=== PATIENT | male | born 1980 | race Caucasian/White ===

== ENCOUNTER → 2016-04-26 | Outpatient (CLI) | payer OTHER ==
--- NOTE | 2016-04-26 13:05 | REP ---
MAXILLOFACIAL CT WITHOUT CONTRAST: HISTORY: Chronic sinusitis. Mild mucosal thickening is present in the ethmoid sinuses. Mucosal thickening is present in the left frontal sinus. The is almost complete opacification of the left frontal sinus. Minimal mucosal thickening is present in the maxillary sinuses. Retention cysts or polyps are present in the maxillary sinuses. Minimal mucosal thickening is present in the sphenoid sinuses. The right frontal sinus is clear. Mucosal thickening involves the osteomeatal units. The middle and inferior nasal turbinates are partially paradoxical. The nasal septum is midline. The cribriform plate, medial montilla of the orbits, and optic canals are intact. The carotid canals form a segment of the posterolateral montilla of the sphenoid sinus. The sphenoid sinus septum inserts into the left internal carotid canal wall. IMPRESSION: 1. Sinus mucosal thickening as described above. 2. Bilateral maxillary sinus retention cysts or polyps. Signed by Javier Mckenzie MD 04/26/2016 01:09 P
== END | disposition home or self-care (01) ==
LOC: M RAD 11:53
PROVIDERS: ATTEND Otolaryngology
DX: J32.4 Chronic pansinusitis (principal); J34.1 Cyst and mucocele of nose and nasal sinus

== ENCOUNTER → 2016-08-22 | Outpatient (CLI) | payer OTHER ==
[~2016-08-22] MED LIST: METHACHOLINE KIT (J7674) INH ONE
--- NOTE | 2016-08-22 08:49 | PFTRPT ---
Tech: Jelena SIMMONS RRT Age: 36 Sex: Male Race: Height: 66.00 Inches Weight: 174.00 Lbs BSA: 1.89 Diagnosis: R05 METHACHOLINE CHALLENGE REPORT: ORDERING PROVIDER: Hardeep Cole M.D. DATE OF SERVICE: 08/22/16 INTERPRETATION: The study was of excellent technical quality. Under protocol, methacholine was administered. At a dose of 2.5 mg (13.875 CDUs), a 23% decline in the FEV1 was noted. The PC20 of 1.46 is significant. Flow rates returned to better than baseline post bronchodilator administration. IMPRESSION: Positive methacholine challenge study. MTDD
== END ==
LOC: M CARPUL 07:44
PROVIDERS: ATTEND Internal Medicine Pulmonary Disease
DX: R05 Cough (principal)

== ENCOUNTER 2016-10-23 09:56 | Day surgery (SDC) | payer OTHER ==
[2016-10-23] VITALS (7 sets, daily range): BP systolic 115–134; BP diastolic 61–91
[~2016-10-23] VITALS: Ht 167.6 cm; Wt 81.6 kg
[~2016-10-23 09:56] MED LIST changes: +ADVA230A INH; +COEN100C PO; +DEPA250T32 PO; +DICY1CAP8 PO; +FISH1000 PO; +MAXA10TA14 PO; +MELA3CAP2 PO; -METHACHOLINE KIT (J7674) INH ONE; +NAPR500T3 PO; +PROAAER10 INH; +RIBO50CA PO; +VITATAB11 PO
[2016-10-23] MEDS ORDERED: LR 1,000 ML IV ONE (10:00)
[2016-10-23] MEDS ORDERED: PROPOFOL 200 MG/20 ML VIAL As Ordered ONE (11:59)
[2016-10-23] MEDS ORDERED: MIDAZOLAM INJ 2 MG/2 ML VIAL (J2250) As Ordered ONE (11:59)
[2016-10-23] MEDS ORDERED: fentaNYL 100 MCG/2 ML INJECTION (J3010) As Ordered ONE (11:59)
[2016-10-23] MEDS ORDERED: LIDOCAINE 2% INJ 100 MG/5 ML SDV (FOR ANES.) As Ordered ONE (11:59)
[2016-10-23] MEDS ORDERED: ROCURONIUM BROMIDE 50 MG/5 ML VIAL/SYRINGE As Ordered ONE (11:59)
[2016-10-23] MEDS ORDERED: dexameTHASONE 4 MG/ML 1ML VIAL (J1100) As Ordered ONE (12:00)
[2016-10-23] MEDS ORDERED: ONDANSETRON 4MG/2ML VIAL (J2405) As Ordered ONE ×2 (12:00→16:35)
[2016-10-23] MEDS ORDERED: EPINEPHrine 1MG/ML INJ 30ML MD-VIAL As Ordered ONE (13:11)
[2016-10-23] MEDS ORDERED: LIDOCAINE W/EPINEPHRINE 1% 20ML VIAL As Ordered ONE (13:11)
[2016-10-23] MEDS ORDERED: HYDROmorphone HCL 2 MG/ML 1ML VIAL (J1170) As Ordered ONE (13:48)
[2016-10-23] MEDS ORDERED: MORPHINE 10 MG/ML 1ML VIAL IV PRN (15:00)
[2016-10-23] MEDS ORDERED: LR 1,000 ML IV SCH ×2 (15:00→15:30)
[2016-10-23] MEDS ORDERED: PERCOCET 5MG/325MG TAB PO PRN (15:30)
[2016-10-23] MEDS ORDERED: ONDANSETRON 4MG/2ML VIAL (J2405) IV PRN (15:30)
[2016-10-23] MEDS ORDERED: fentaNYL 100 MCG/2 ML INJECTION (J3010) IV PRN (15:30)
[2016-10-23] MEDS ORDERED: HYDROmorphone HCL 1 MG/ML SYRINGE (J1170) IV PRN (15:30)
[2016-10-23] MEDS ORDERED: METOCLOPRAMIDE INJ 10MG/2ML VIAL (J2765) IV PRN (15:30)
[2016-10-23] MEDS: ACETAMINOPH W/CODEINE #3 TAB UD PO PRN ×2 (15:34→21:06)
[2016-10-23] MEDS ORDERED: ALBUTEROL SULFATE 2.5 MG/0.5 ML INH NEB SOLN As Ordered ONE (15:41)
[2016-10-23] MEDS ORDERED: ALBUTEROL SULFATE 2.5 MG/0.5 ML INH NEB SOLN INH ONE (16:00)
[2016-10-23] MEDS ORDERED: METOCLOPRAMIDE INJ 10MG/2ML VIAL (J2765) As Ordered ONE (16:35)
[2016-10-23] MEDS ORDERED: RIZATRIPTAN BENZOATE 10 MG TAB PO PRN (17:30)
[2016-10-24 04:00] VITALS: BP 115/65
[2016-10-24] MEDS: ACETAMINOPH W/CODEINE #3 TAB UD PO PRN (04:19)
[2016-10-24 08:00] VITALS: BP 127/78
--- NOTE | 2016-10-25 15:58 | RO ---
DATE OF PROCEDURE: 10/23/2016 PREOPERATIVE DIAGNOSIS: Chronic rhinosinusitis. POSTOPERATIVE DIAGNOSIS: Chronic rhinosinusitis. PROCEDURE: Bilateral antrostomy, ethmoidectomy, left balloon maxillary sinus dilation. SURGEON: Dr. Andrei Hughes METAL EXPEDITER: ANESTHESIA: FINDINGS: There was very thick bone on the right side of the anterior aspect of the ethmoid area and also the medial wall of the maxillary sinus. I did attempt balloon dilatation of the right side, but I could not identify the natural sinus ostium. DESCRIPTION OF PROCEDURE: Under general anesthesia with the patient intubated, the patient prepped and draped in the usual manner, I infiltrated with lidocaine with epinephrine. I used pledges of adrenaline 1:1000 I started first on the right side. Identified the uncinate process. Then I mobilized it anteriorly. There was some polypoid tissue right in this area, so I removed that with a microdebrider. Again, I attempted to find the natural sinus ostium and was unsuccessful. So, what I did was I ended up going through the anterior aspect of the ethmoid air cells into the ethmoid area and opened that up. I then tried to enter into the maxillary sinus, but the wall was very thick. I did find an area that I went into and I did not feel comfortable about it, so I decided just to leave it at that. On the left side, a similar procedure was performed. I did identify the natural sinus ostium and advanced the balloon after putting in the guidewire into the natural sinus ostium of the left side and dilated it up. I was able to see within the sinus. Again, there was some polypoid tissue in this area and I removed that with a microdebrider. I opened up the ethmoid air cells on that left side. Because of the above findings. I thought it would best to leave it as it was and then, if necessary, come back with the navigation guidance to assist in procedure. I thought it may be necessary to drill up part of that area rather than do it with the microdebrider. The patient tolerated the procedure well. Less than 100 mL of estimated blood loss. There was no bleeding at the end of the procedure. I did put Propel implants in the area between the turbinate and lateral nasal wall on both sides. Patient was extubated and transferred to the recovery room in excellent condition.
[2016-12-10] MEDS ORDERED: REFR0.5D8 OU (11:39)
== END 2016-10-24 09:10 | disposition home or self-care (01) ==
LOC: M SDC 09:56 → M PED 17:55 → M SDC 10-24 09:10
PROVIDERS: ATTEND Otolaryngology
DX: J32.8 Other chronic sinusitis (principal); G43.909 Migraine, unspecified, not intractable, without status migrainosus; F17.210 Nicotine dependence, cigarettes, uncomplicated; K58.9 Irritable bowel syndrome, unspecified; M50.20 Other cervical disc displacement, unspecified cervical region; D49.6 Neoplasm of unspecified behavior of brain; J45.909 Unspecified asthma, uncomplicated; R06.83 Snoring; T88.4XXD Failed or difficult intubation, subsequent encounter; Z88.8 Allergy status to other drugs, medicaments and biological substances; Z79.899 Other long term (current) drug therapy
CPT/HCPCS: 31255; 31256; 96374; 96375; C2625; J1170; J2250; J2405; J2765; J3010

== ENCOUNTER → 2016-11-08 | Outpatient (REF) | payer OTHER ==
[~2016-11-08] MED LIST changes: +REFR0.5D8 OU
[2016-11-11 14:08] LABS: D001-IgE D pteronyssinus 0.99 kU/L (Class II); E001-IgE Cat Epith/Dander < 0.10 kU/L (Class 0); E005-IgE Dog Dander < 0.10 kU/L (Class 0); G002-IgE Bermuda Grass < 0.10 kU/L (Class 0); G008-IgE Kentucky Bluegrass < 0.10 kU/L (Class 0); M001-IgE Penicillium chrysogen < 0.10 kU/L (Class 0); M002 IgE Cladosporium herbaru < 0.10 kU/L (Class 0); M003 IgE Aspergillus fumigatu < 0.10 kU/L (Class 0); M006-IgE Alternaria alternata < 0.10 kU/L (Class 0); T001-IgE Maple/Box Elder < 0.10 kU/L (Class 0); T003-IgE Common Silver Birch < 0.10 kU/L (Class 0); T007-IgE Oak, White < 0.10 kU/L (Class 0); T008-IgE Elm, American < 0.10 kU/L (Class 0); T015-IgE Ash, White < 0.10 kU/L (Class 0); T041-IgE Hickory, White < 0.10 kU/L (Class 0); W001-IgE Ragweed, Short < 0.10 kU/L (Class 0); W014-IgE Pigweed, Rough < 0.10 kU/L (Class 0); W018-IgE Sheep Sorrel < 0.10 kU/L (Class 0)
== END ==
LOC: M LAB REF 13:26
PROVIDERS: ATTEND Internal Medicine Pulmonary Disease
DX: J45.40 Moderate persistent asthma, uncomplicated (principal)

== ENCOUNTER → 2016-11-30 | Outpatient (CLI) | payer OTHER ==
--- NOTE | 2016-11-30 09:22 | REP ---
MAXILLOFACIAL CT STUDY WITHOUT CONTRAST: HISTORY: Chronic rhinitis. The patient underwent bilateral antrostomy, ethmoidectomy and left balloon maxillary sinus dilation on October 23, 2016. Comparison maxillofacial CT study is from April 26. TECHNIQUE: Helical scanning is acquired and 2 mm axial images are reformatted. Coronal MPR images are generated and reviewed. MAXILLOFACIAL CT FINDINGS: Moderate mucosal thickening persists in the maxillary sinuses bilaterally with mucous retention cysts on both sides. These are somewhat more prominent on the right compared to the prior study. There is patchy mucosal thickening bilaterally throughout the ethmoid air cells as well. Mild mucosal thickening is seen in the inferior frontal sinuses. Mastoid aeration is normal and symmetric. Minimal mucosal thickening is seen in the sphenoid sinus. The ethmoid sinus opacification is more pronounced than on April 26, 2016. No intraorbital or intracranial lesion is seen. Bony nasal septum is in the midline. Nasal no nasal polyp is appreciated. Nasal turbinate soft tissues are symmetric. The osteomeatal complexes are obscured by mucosal thickening bilaterally. The infundibuli are narrowed bilaterally. The nasal ethmoid recess on the left is improved compared to the prior study. IMPRESSION: Tracie sinusitis changes as above. The osteomeatal complexes of the maxillary sinuses are obscured by mucosal thickening bilaterally. Signed by Dustin Schneider MD 11/30/2016 12:50 P
== END ==
LOC: M RAD 08:26
PROVIDERS: ATTEND Otolaryngology
DX: J31.0 Chronic rhinitis (principal)

== ENCOUNTER 2016-12-18 08:54 | Day surgery (SDC) | payer OTHER ==
[~2016-12-18] VITALS: Ht 167.6 cm; Wt 81.6 kg
[2016-12-18] MEDS ORDERED: LR 1,000 ML IV SCH ×3 (09:00→13:30)
[2016-12-18] MEDS ORDERED: fentaNYL 100 MCG/2 ML INJECTION (J3010) As Ordered ONE ×2 (09:32→11:20)
[2016-12-18] MEDS ORDERED: MIDAZOLAM INJ 2 MG/2 ML VIAL (J2250) As Ordered ONE (09:32)
[2016-12-18] MEDS ORDERED: METHYLENE BLUE 0.5% (5MG/ML) 10 ML AMP (PROVAYBLUE)(Q9968 PER 1MG) As Ordered ONE (10:07)
[2016-12-18] MEDS ORDERED: LIDOCAINE W/EPINEPHRINE 1% 20ML VIAL As Ordered ONE (10:07)
[2016-12-18] MEDS ORDERED: EPINEPHrine 1MG/ML INJ 30ML MD-VIAL As Ordered ONE ×2 (10:08→12:13)
[2016-12-18] MEDS ORDERED: LIDOCAINE 2% INJ 100 MG/5 ML SDV (FOR ANES.) As Ordered ONE (11:18)
[2016-12-18] MEDS ORDERED: ROCURONIUM BROMIDE 50 MG/5 ML VIAL/SYRINGE As Ordered ONE (11:18)
[2016-12-18] MEDS ORDERED: SUCCINYLCHOLINE 100 MG/5 ML SYRINGE (J0330) As Ordered ONE (11:18)
[2016-12-18] MEDS ORDERED: PROPOFOL 200 MG/20 ML VIAL As Ordered ONE (11:18)
[2016-12-18] MEDS ORDERED: ONDANSETRON 4MG/2ML VIAL (J2405) As Ordered ONE (11:19)
[2016-12-18] MEDS ORDERED: dexameTHASONE 4 MG/ML 1ML VIAL (J1100) As Ordered ONE (11:19)
[2016-12-18] MEDS ORDERED: LABETALOL HCL 100 MG/20 ML VIAL As Ordered ONE (12:14)
[2016-12-18] MEDS ORDERED: ACETAMINOPH W/CODEINE #3 TAB UD As Ordered ONE (13:08)
[2016-12-18] MEDS ORDERED: LEVALBUTEROL 1.25 MG/0.5 ML CONCENTRATE NEB As Ordered ONE (13:12)
[2016-12-18] MEDS ORDERED: ONDANSETRON 4MG/2ML VIAL (J2405) IV PRN (13:30)
[2016-12-18] MEDS ORDERED: fentaNYL 100 MCG/2 ML INJECTION (J3010) IV PRN (13:30)
[2016-12-18] MEDS ORDERED: ACETAMINOPH W/CODEINE #3 TAB UD PO PRN (13:30)
[2016-12-18] MEDS ORDERED: PERCOCET 5MG/325MG TAB PO PRN (13:30)
[2016-12-18] MEDS ORDERED: LEVALBUTEROL 1.25 MG/0.5 ML CONCENTRATE NEB INH ONE (13:30)
[2016-12-18 15:05] VITALS: BP 164/90
--- NOTE | 2016-12-18 17:45 | RO ---
DATE OF PROCEDURE: 12/18/2016 PREPROCEDURE DIAGNOSIS: Chronic rhinosinusitis. POSTPROCEDURE DIAGNOSIS: Chronic rhinosinusitis PROCEDURE: Bilateral nasofrontal sinusotomy, antrostomies, ethmoidectomies. SURGEON: Dr. Andrei Hughes PUBLIC SAFETY OFFICER: ANESTHESIA: FINDINGS: There was polypoid tissue within the sinuses. The navigation system was used during the procedure. DESCRIPTION OF PROCEDURE: Under general anesthesia with the patient intubated, the patient was prepped and draped in the usual manner. The navigation system was prepared and calibrated. I used pledgets of adrenaline 1:1000, infiltrated with the lidocaine and epinephrine. I started first on the right side. I opened up the ethmoid air cells and then opened them up from posterior to anterior. Then, I opened the nasal frontal area. The same procedure was performed on both sides. I could see into the frontal sinus. Then, I opened into the maxillary sinus on both sides. I enlarged that opening as well. The patient tolerated the procedure well. Approximately 25 mL estimated blood loss. The patient tolerated the procedure well, was extubated and transferred to the recovery room in excellent condition. I did use Propel implants into the osteomeatal complex area at the time of the procedure.
== END 2016-12-18 15:05 | disposition home or self-care (01) ==
LOC: M SDC 08:54
PROVIDERS: ATTEND Otolaryngology
DX: J32.8 Other chronic sinusitis (principal); K21.9 Gastro-esophageal reflux disease without esophagitis; M12.9 Arthropathy, unspecified; G43.909 Migraine, unspecified, not intractable, without status migrainosus; F43.20 Adjustment disorder, unspecified; J45.909 Unspecified asthma, uncomplicated; G47.9 Sleep disorder, unspecified; Z88.8 Allergy status to other drugs, medicaments and biological substances; Z79.899 Other long term (current) drug therapy; Z72.0 Tobacco use
CPT/HCPCS: 31090; 88305; C2625; J0330; J1100; J2250; J2405; J3010; Q9968

== ENCOUNTER → 2018-02-26 | Outpatient (CLI) | payer OTHER ==
[~2018-02-26] MED LIST changes: -ADVA230A INH; -COEN100C PO; -DEPA250T32 PO; -DICY1CAP8 PO; -FISH1000 PO; +GLUCAGON FOR INJ 1 MG VIAL (J1610) As Ordered; +ISOVUE-370 76% 100ML VIAL (Q9967) As Ordered; -MAXA10TA14 PO; -MELA3CAP2 PO; -NAPR500T3 PO; -PROAAER10 INH; -REFR0.5D8 OU; -RIBO50CA PO; -VITATAB11 PO; +VoLumen 0.1% SUSPENSION 450ML BOTTLE As Ordered
== END ==
LOC: M RAD 11:50
DX: K62.5 Hemorrhage of anus and rectum (principal); K44.9 Diaphragmatic hernia without obstruction or gangrene; K76.0 Fatty (change of) liver, not elsewhere classified; K57.90 Diverticulosis of intestine, part unspecified, without perforation or abscess without bleeding
CPT/HCPCS: Q9967

== ENCOUNTER → 2018-03-05 | Outpatient (CLI) | payer OTHER ==
[2018-03-05 14:42] LABS: IMMUNOGLOBULIN A 158 MG/DL (70-400)
[2018-03-05 14:42] LABS: FREE T4 0.85 NG/DL (0.76-1.46)
[2018-03-08 00:24] LABS: TISSUE TRANSGLUTAMINASE IgA <2 U/mL (0-3)
== END ==
LOC: M LAB 13:19
DX: K62.5 Hemorrhage of anus and rectum (principal)
CPT/HCPCS: 84443

== ENCOUNTER → 2018-03-10 | Outpatient (REF) | payer OTHER | LOC: M LAB REF 12:12 | DX: K62.5 Hemorrhage of anus and rectum (principal) ==

== ENCOUNTER 2018-04-24 11:48 | Day surgery (SDC) | payer OTHER ==
[~2018-04-24] VITALS: Ht 167.6 cm; Wt 90.7 kg
[~2018-04-24 11:48] MED LIST changes: +ADVA230A INH; +COEN100C PO; +CYCL5TAB PO; +DEPA250T32 PO; +DICY1CAP8 PO; +FISH1000 PO; +FISH7.5C PO; +FLON1SPR; -GLUCAGON FOR INJ 1 MG VIAL (J1610) As Ordered; +IMIT6INJ SC; -ISOVUE-370 76% 100ML VIAL (Q9967) As Ordered; +LIDOCAINE 2% INJ 100 MG/5 ML SDV (FOR ANES.) As Ordered ONE; +LIPI20TA PO; +MAXA10TA14 PO; +MELA3CAP2 PO; +MONT10TA2 PO; +NAPR-885 PO; +NS 1,000 ML IV ONE; +OMEP20CA3 PO; +PROAAER10 INH; +PROPOFOL 200 MG/20 ML VIAL As Ordered ONE; +PROZ20CA11 PO; +REFR0.5D8 OU; +RIBO50CA PO; +VITATAB11 PO; -VoLumen 0.1% SUSPENSION 450ML BOTTLE As Ordered
--- NOTE | 2018-04-24 12:56 | ROOR ---
Patient Name: Matthew Grant Procedure Date: 04/24/2018 12:42 PM Date of : 1980 Age: 38 Room: [facility] Gender: Male Note Status: Finalized Procedure: Upper GI endoscopy Indications: Heartburn, Previously treated for Helicobacter pylori Providers: Yared CUNNINGHAM MD Referring MD: SHAKIR SCHILLING MD Requesting Provider: Medicines: Monitored Anesthesia Care Complications: No immediate complications. Procedure: Pre-Anesthesia Assessment: - The heart rate, respiratory rate, oxygen saturations, blood pressure, adequacy of pulmonary ventilation, and response to care were monitored throughout the procedure. The Endoscope was introduced through the mouth, and advanced to the second part of duodenum. The upper GI endoscopy was accomplished without difficulty. The patient tolerated the procedure well. Findings: LA Grade B (one or more mucosal breaks greater than 5 mm, not extending between the tops of two mucosal folds) esophagitis was found in the lower third of the esophagus. Biopsies were taken with a cold forceps for histology. The exam of the esophagus was otherwise normal. Diffuse mild inflammation characterized by erythema was found in the gastric antrum. Biopsies were taken with a cold forceps for Helicobacter pylori testing. Small Hiatal Hernia. The exam of the stomach was otherwise normal. The examined duodenum was normal. Impression: - LA Grade B reflux esophagitis. Biopsied. - Gastritis. Biopsied. - Small Hiatal Hernia. - Normal examined duodenum. Recommendation: - Use Prilosec (omeprazole) 40 mg PO daily. - (the script was sent to your pharmacy on file) - Telephone endoscopist for pathology results in 2 weeks. Yared Cunningham MD Yared CUNNINGHAM MD 04/24/2018 12:56:05 PM This report has been signed electronically. Number of Addenda: 0 Note Initiated On: 04/24/2018 12:42 PM Estimated Blood Loss: Estimated blood loss: none.
--- NOTE | 2018-04-24 13:14 | ROOR ---
Patient Name: Matthew Grant Procedure Date: 04/24/2018 12:44 PM Date of : 1980 Age: 38 Room: [facility] Gender: Male Note Status: Finalized Procedure: Colonoscopy Indications: Irritable bowel syndrome with diarrhea, Mixed irritable bowel syndrome, Generalized abdominal pain, Clinically significant diarrhea of unexplained origin Providers: Yared CUNNINGHAM MD Referring MD: SHAKIR SCHILLING MD Requesting Provider: Medicines: Monitored Anesthesia Care Complications: No immediate complications. Procedure: Pre-Anesthesia Assessment: - The heart rate, respiratory rate, oxygen saturations, blood pressure, adequacy of pulmonary ventilation, and response to care were monitored throughout the procedure. The Colonoscope was introduced through the anus and advanced to 10 cm into the ileum. The colonoscopy was performed without difficulty. The patient tolerated the procedure well. The quality of the bowel preparation was good. Findings: The perianal and digital rectal examinations were normal. A 3 mm polyp was found in the sigmoid colon. The polyp was sessile. The polyp was removed with a cold snare. Resection and retrieval were complete. Small Internal Hemorrhoids. Retroflexion in the right colon was performed. The exam was otherwise normal throughout the examined colon. The terminal ileum appeared normal. Biopsies for histology were taken with a cold forceps for evaluation of microscopic colitis. Impression: - One 3 mm polyp in the sigmoid colon, removed with a cold snare. Resected and retrieved. - Small Internal Hemorrhoids. - The colon is otherwise normal. - The examined portion of the ileum (>10 cm) is normal. - Biopsies were taken with a cold forceps for evaluation of microscopic colitis. - (Irritable Bowel Syndrome/IBS suspected.) Recommendation: - (the script was sent to your pharmacy on file) - Use Bentyl (dicyclomine) 20 mg PO Q 4-6 hrs PRN 30 min AC. - Telephone endoscopist for pathology results in 2 weeks. Yared Cunningham MD Yared CUNNIGNHAM MD 04/24/2018 1:14:21 PM This report has been signed electronically. Number of Addenda: 0 Note Initiated On: 04/24/2018 12:44 PM Estimated Blood Loss: Estimated blood loss: none.
[2018-04-24 13:38] VITALS: BP 141/97
== END 2018-04-24 13:40 | disposition home or self-care (01) ==
LOC: M OPP 11:48
PROVIDERS: ATTEND Internal Medicine Gastroenterology
DX: D12.5 Benign neoplasm of sigmoid colon (principal); K64.8 Other hemorrhoids; K58.2 Mixed irritable bowel syndrome; R10.84 Generalized abdominal pain; K21.0 Gastro-esophageal reflux disease with esophagitis; K29.70 Gastritis, unspecified, without bleeding; R12 Heartburn

== ENCOUNTER → 2020-03-17 | Outpatient (CLI) | payer SELFPAY ==
[~2020-03-17] MED LIST changes: -COEN100C PO; +COEN100C4 PO; -LIDOCAINE 2% INJ 100 MG/5 ML SDV (FOR ANES.) As Ordered ONE; -MONT10TA2 PO; +MONT5TAB2 PO; -NS 1,000 ML IV ONE; +OMEP1CAP73 PO; -OMEP20CA3 PO; -PROPOFOL 200 MG/20 ML VIAL As Ordered ONE
== END ==
LOC: M LABSMTC 11:48
PROVIDERS: ATTEND Pediatrics
DX: Z20.828 Contact with and (suspected) exposure to other viral communicable diseases (principal)

== ENCOUNTER → 2021-11-23 | Outpatient (CLI) | payer OTHER ==
[~2021-11-23] MED LIST changes: +FISH10005 PO; -FISH7.5C PO; +MONT10TA97 PO; -MONT5TAB2 PO
== END ==
LOC: M RAD 14:12
PROVIDERS: ATTEND Nurse Practitioner Family
DX: S23.428A Other sprain of sternum, initial encounter (principal)

== ENCOUNTER → 2022-04-03 | Outpatient (REF) | payer OTHER ==
[~2022-04-03] MED LIST changes: -MAXA10TA14 PO; +RIZA10TA64 PO
== END ==
LOC: M SFHCDERM 16:35
PROVIDERS: ATTEND Physician Assistant
DX: D49.2 Neoplasm of unspecified behavior of bone, soft tissue, and skin (principal)

== ENCOUNTER 2022-06-03 14:38 | Emergency (ER) | payer OTHER ==
[~2022-06-03] VITALS: Ht 167.6 cm; Wt 81.8 kg
[2022-06-03 14:40] VITALS: BP 159/97
[2022-06-03] MEDS ORDERED: DERMABOND TOPICAL SKIN ADHESIVE TOP ONE (15:05)
[2022-06-03] MEDS ORDERED: CEPH500C PO (15:19)
== END 2022-06-03 15:41 | disposition home or self-care (01) ==
LOC: M ED 14:38
DX: S61.211A Laceration without foreign body of left index finger without damage to nail, initial encounter (principal); W26.8XXA Contact with other sharp object(s), not elsewhere classified, initial encounter; Y99.0 Civilian activity done for income or pay

== ENCOUNTER 2023-08-11 01:52 | Emergency (ER) | payer OTHER ==
[~2023-08-11] VITALS: Ht 167.6 cm; Wt 87.8 kg
[~2023-08-11 01:52] MED LIST changes: +CEPH500C PO
[2023-08-11 02:25] LABS: VENOUS BASE EXCESS -0.4 (-2.0-2.0); VENOUS HCO3 26.1 MMOL/L (23.0-27.0); VENOUS O2 SATURATION 81.2 % (60.0-80.0); VENOUS PARTIAL PRESSURE CO2 49.3 mmHg (38.0-50.0); VENOUS PARTIAL PRESSURE O2 43.7 mmHg (30.0-50.0); VENOUS PH 7.341 UNITS (7.330-7.430); VENOUS STANDARD HCO3 23.7 MMOL/L; VENOUS TOTAL CO2 27.6 MMOL/L (24.0-28.0)
[2023-08-11 02:28] LABS: BASO # 0.1 10^3/uL (0.0-0.2); BASO % 0.9 % (0.0-1.0); EOS # 0.2 10^3/uL (0.0-0.5); EOS % 2.7 % (0.0-3.0); HEMATOCRIT 44.6 % (42.0-52.0); HEMOGLOBIN 15.5 g/dl (13.5-17.5); LYMPH # 2.8 10^3/uL (1.5-5.0); MEAN CORPUSCULAR HGB CONC 34.8 g/dl (32.0-36.5); MEAN CORPUSCULAR VOLUME 86.4 fl (80.0-96.0); MONO # 0.6 10^3/uL (0.0-0.8); MONO % 7.5 % (2.0-8.0); NEUTROPHILS # 4.4 10^3/uL (1.5-8.5); NEUTROPHILS % 54.7 % (36.0-66.0); PLATELET COUNT, AUTOMATED 261 10^3/uL (150-450); RED BLOOD COUNT 5.16 10^6/uL (4.30-6.10); WHITE BLOOD COUNT 8.1 10^3/uL (4.0-10.0)
[2023-08-11] MEDS: ASPIRIN 81MG CHEW TABLET PO ONE (02:47)
[2023-08-11 02:51] VITALS: BP 150/103
[2023-08-11] MEDS: NITROGLYCERIN 0.4MG SUBL TABLET SL PRN (02:51)
[2023-08-11 02:55] LABS: BLOOD UREA NITROGEN 11 MG/DL (9-23); CALCIUM LEVEL 9.9 MG/DL (8.5-10.1); CARBON DIOXIDE LEVEL 31 MMOL/L (20-31); CHLORIDE LEVEL 106 MMOL/L (98-107); CK-MB VALUE MASS < 1.0 NG/ML (<3.6); CREATININE FOR GFR 0.97 MG/DL (0.70-1.30); GLOMERULAR FILTRATION RATE > 60.0 (>60); GLUCOSE, FASTING 102 MG/DL (60-100); POTASSIUM SERUM 3.8 MMOL/L (3.5-5.1); SODIUM LEVEL 142 MMOL/L (136-145)
[2023-08-11 02:56] LABS: CPK CREATINE PHOSPHOKINASE 89 U/L (46-171); MB/CK RELATIVE INDEX 1.12 (< OR =4)
[2023-08-11] MEDS ORDERED: ISOVUE-370 76% 100ML VIAL As Ordered ONE (03:34)
[2023-08-11 03:56] LABS: CK-MB VALUE MASS < 1.0 NG/ML (<3.6)
[2023-08-11 03:57] LABS: CPK CREATINE PHOSPHOKINASE 79 U/L (46-171); MB/CK RELATIVE INDEX 1.26 (< OR =4)
[2023-08-11] MEDS ORDERED: NAPR-837 PO (05:28)
[2023-08-11 05:30] VITALS: BP 133/93; TEMP 98.2; O2SAT 97
== END 2023-08-11 05:38 | disposition home or self-care (01) ==
LOC: M ED 01:52
DX: R07.9 Chest pain, unspecified (principal); I10 Essential (primary) hypertension; K21.9 Gastro-esophageal reflux disease without esophagitis; G43.909 Migraine, unspecified, not intractable, without status migrainosus; F17.210 Nicotine dependence, cigarettes, uncomplicated; F10.10 Alcohol abuse, uncomplicated; Z88.8 Allergy status to other drugs, medicaments and biological substances; Z79.51 Long term (current) use of inhaled steroids; Z79.2 Long term (current) use of antibiotics; Z79.899 Other long term (current) drug therapy
CPT/HCPCS: 36415; 71045; 71275; 80048; 82550; 82553; 82803; 84484; 85025; 93005; 93041; 93971; 94760; 99285; Q9967